=== PATIENT | male | born 1940 | race Caucasian/White ===

== ENCOUNTER 2019-04-10 13:23 | Inpatient (IN) | payer MEDICARE, MEDICAID, OTHER ==
[2019-04-10] VITALS (18 sets, daily range): BP systolic 59–107; BP diastolic 25–68
[~2019-04-10] VITALS: Ht 162.6 cm; Wt 102.3 kg
[2019-04-10] MEDS ORDERED: SODIUM CHLORIDE 0.9% 1,000 ML IV ONE ×2 (13:47→14:45)
[2019-04-10] MEDS ORDERED: VANCOMYCIN 1 G PREMIX 200 ML IV SCH (14:45)
[2019-04-10] MEDS ORDERED: NOREPINEPHRINE 4MG/250ML PMX 250 ML IV ONE (14:45)
[2019-04-10] MEDS ORDERED: PIPERACILLIN/TAZ 3.375G PREMIX 50 ML IV ONE (14:45)
[2019-04-10 14:58] LABS: CHLORIDE 105 mEq/L (98-107)
[2019-04-10 14:59] LABS: BASOPHILS % 0.6 % (0.0-2.0); HEMATOCRIT. 22.9 % (42.0-52.0); HEMOGLOBIN. 7.1 g/dL (14.0-18.0); LYMPHOCYTES % 18.3 % (20.0-50.0); MEAN CORPUSCULAR HEMOGLOBIN 21.4 pg (28.0-32.0); MEAN CORPUSCULAR VOLUME 69.2 fL (80.0-94.0); MEAN PLATELET VOLUME 9.2 fl (7.4-10.4); MONOCYTES % 5.8 % (2.0-8.0); NEUTROPHILS % 74.3 % (40.0-76.0); PLATELET 292 x1000/uL (130-400); RED CELL DISTRIBUTION WIDTH 18.9 % (11.6-14.6)
[2019-04-10 15:27] LABS: INR 1.5; PROTHROMBIN TIME 14.9 sec (9.6-11.0)
[2019-04-10 15:33] LABS: PLATELET ESTIMATE NORMAL
[2019-04-10] MEDS ORDERED: IOHEXOL-300 100 ML BOTTLE ONE (16:36)
[2019-04-10] MEDS ORDERED: DEXT 5%/LACTATED RINGERS 1,000 ML IV SCH (17:05)
[2019-04-10] MEDS ORDERED: ONDANSETRON HCL 4MG/2ML INJ IV PRN (17:15)
[2019-04-10] MEDS ORDERED: NOREPINEPHRINE 4 MG in DEXT 5% WATER 246 ML IV ONE (17:15)
[2019-04-10] MEDS ORDERED: DOCUSATE SODIUM 100MG CAPSULE PO PRN (17:15)
[2019-04-10] MEDS ORDERED: NITROGLYCERIN 0.4MG TABLET SL SL PRN (17:15)
[2019-04-10] MEDS ORDERED: MAGNESIUM/ALUMINUM HYDROXIDE/SIMETHICONE 30ML UDC PO PRN (17:15)
[2019-04-10] MEDS ORDERED: GUAIFENESIN 200MG/10ML SUGAR FREE UDC PO PRN (17:15)
[2019-04-10] MEDS ORDERED: ACETAMINOPHEN 325MG TABLET PO PRN (17:15)
[2019-04-10] MEDS ORDERED: IPRATROPIUM/ALBUTEROL 0.5-3(2.5)MG/3ML NEB INH PRN (17:15)
[2019-04-10] MEDS ORDERED: CLONIDINE 0.1MG TABLET PO PRN (17:15)
[2019-04-10 18:00] LABS: FOLIC ACID (FOLATE) SERUM 9.7 ng/mL (>5.38)
[2019-04-10] MEDS ORDERED: TRAMADOL 50MG TABLET PO PRN (18:38)
[2019-04-10] MEDS ORDERED: MORPHINE SULFATE 4 MG/ML CPJ (NOT FOR IM USE) IV PRN (18:39)
[2019-04-10] MEDS ORDERED: NOREPINEPHRINE 4 MG in DEXTROSE 5% WATER 250 ML IV PRN (18:45)
[2019-04-10] MEDS ORDERED: PHYTONADIONE 10MG/ML AMP SUBCUT NR (19:07)
[2019-04-10] MEDS ORDERED: DOPAMINE 400MG/250ML PREMIX 250 ML IV PRN (19:15)
[2019-04-10] MEDS ORDERED: VASOPRESSIN 10 UNIT in SODIUM CHLORIDE 0.9% 99.5 ML IV PRN (19:15)
[2019-04-10] MEDS ORDERED: DEXTROSE 50% WATER 50ML SYRINGE IV PRN (19:15)
[2019-04-10] MEDS ORDERED: PHENYLEPHRINE 40 MG in DEXT 5% WATER 246 ML IV PRN (19:15)
[2019-04-10] MEDS ORDERED: NOREPINEPHRINE 32 MG in DEXT 5% WATER 468 ML IV PRN ×2 (19:55→20:15)
[2019-04-10] MEDS ORDERED: CEFTRIAXONE 1 G PREMIX 50 ML IV SCH (20:00)
[2019-04-10] MEDS ORDERED: INSULIN LISPRO 100 UNITS/ML SUBCUT SCH (21:00)
[2019-04-10] MEDS ORDERED: LEVOFLOXACIN 500MG PREMIX 100 ML IV NR (21:00)
[2019-04-10] MEDS ORDERED: ZOLPIDEM TARTRATE 5MG TABLET PO PRN (21:00)
[2019-04-10] MEDS ORDERED: FAMOTIDINE 20MG TABLET PO SCH (21:00)
[2019-04-10] MEDS ORDERED: EPINEPHRINE 0.1MG/ML (1:10,000) 10ML SYR ONE (21:40)
[2019-04-10] MEDS ORDERED: CALCIUM CHLORIDE 1GM/10ML SYR IV ONE (21:40)
[2019-04-10] MEDS ORDERED: AMIODARONE HCL 50MG/ML 3ML VIAL IV ONE (21:40)
[2019-04-10] MEDS ORDERED: SODIUM BICARBONATE 8.4% MEQ/ML 50ML VIAL IV ONE (21:40)
[2019-04-10 21:54] LABS: HEMOGLOBIN. 8.7 g/dL (14.0-18.0); MEAN CORPUSCULAR HEMOGLOBIN 25.3 pg (28.0-32.0); MEAN CORPUSCULAR VOLUME 78.4 fL (80.0-94.0); MEAN PLATELET VOLUME 9.3 fl (7.4-10.4); PLATELET 217 x1000/uL (130-400); RED BLOOD CELL COUNT 3.44 mill/uL (4.7-6.1); RED CELL DISTRIBUTION WIDTH 19.4 % (11.6-14.6)
[2019-04-10] MEDS ORDERED: ALBUMIN HUMAN 25GM/100ML (25%) IV SCH (22:00)
[2019-04-10 23:01] LABS: CLARITY URINE CLOUDY (CLEAR); COLOR URINE YELLOW (YELLOW); KETONES URINE NEGATIVE (NEGATIVE); LEUKOCYTE ESTERASE URINE NEGATIVE (NEGATIVE); NITRITE URINE NEGATIVE (NEGATIVE); OCCULT BLOOD URINE 2+ (NEGATIVE); PROTEIN URINE 3+ (NEGATIVE); SPECIFIC GRAVITY URINE 1.038 (1.005-1.030); UROBILINOGEN URINE 0.2 E.U./dL (0.2-1.0)
[2019-04-10] MEDS ORDERED: LOVA20TA2 PO (23:22)
[2019-04-10] MEDS ORDERED: METO200T48 PO (23:22)
[2019-04-10] MEDS ORDERED: DILT300T10 PO (23:22)
[2019-04-10] MEDS ORDERED: ENAL20TA MT (23:22)
[2019-04-10] MEDS ORDERED: DUTA0.5C15 PO (23:22)
[2019-04-10] MEDS ORDERED: GABA-531 PO (23:22)
[2019-04-10] MEDS ORDERED: TAMS0.4C31 PO (23:22)
[2019-04-10] MEDS ORDERED: HYDR100T26 PO (23:22)
[2019-04-10] MEDS ORDERED: FURO-152 PO (23:22)
[2019-04-10] MEDS ORDERED: INSU100I28 SQ (23:22)
[2019-04-10] MEDS ORDERED: RIVA20TA PO (23:22)
[2019-04-10] MEDS ORDERED: TRAM50TA3 PO (23:22)
[2019-04-10] MEDS ORDERED: DIGO125T82 PO (23:22)
[2019-04-10] MEDS ORDERED: OMEP20TA2 PO (23:22)
[2019-04-10] MEDS ORDERED: METF-416 PO (23:22)
[2019-04-11] MEDS ORDERED: BLOOD SUGAR DIAGNOSTIC STRIP TEST SCH
[2019-04-11] MEDS ORDERED: INSULIN LISPRO 100 UNITS/ML SUBCUT SCH
[2019-04-11 01:57] LABS: PLATELET ESTIMATE NORMAL
[2019-04-11] MEDS ORDERED: CEFTRIAXONE 1 G PREMIX 50 ML IV SCH (09:00)
[2019-04-11] MEDS ORDERED: SODIUM BICARBONATE 8.4% MEQ/ML 50ML VIAL IV ONE (15:43)
[2019-04-11] MEDS ORDERED: EPINEPHRINE 0.1MG/ML (1:10,000) 10ML SYR ONE (15:43)
[2019-04-11] MEDS ORDERED: LEVOFLOXACIN 250MG PREMIX 50 ML IV SCH (21:00)
== END 2019-04-10 22:19 | disposition expired | DRG 393 ==
LOC: ER 13:23 → EDBEDREQ 13:50 → EDBEDREQSVC 14:44 → MICUSO 14:58 → EDBEDREQ 15:49 → ENRESERV 16:23
PROVIDERS: ADMIT Internal Medicine; ATTEND Internal Medicine
PROC: 5A12012 Performance of Cardiac Output, Single, Manual (ICD-10-PCS; principal; 2019-04-10)
PROC: 30233K1 Transfusion of Nonautologous Frozen Plasma into Peripheral Vein, Percutaneous Approach (ICD-10-PCS; 2019-04-10)
PROC: 30233N1 Transfusion of Nonautologous Red Blood Cells into Peripheral Vein, Percutaneous Approach (ICD-10-PCS; 2019-04-10)
DX: K66.1 Hemoperitoneum (principal); N17.0 Acute kidney failure with tubular necrosis; D62 Acute posthemorrhagic anemia; E44.0 Moderate protein-calorie malnutrition; E87.2 Acidosis; R57.8 Other shock; I49.01 Ventricular fibrillation; E11.65 Type 2 diabetes mellitus with hyperglycemia; I10 Essential (primary) hypertension; Z95.0 Presence of cardiac pacemaker; I46.9 Cardiac arrest, cause unspecified; Z79.84 Long term (current) use of oral hypoglycemic drugs; Z68.38 Body mass index [BMI] 38.0-38.9, adult
CPT/HCPCS: 36415; 74177; 80061; 82607; 82746; 82962; 83036; 83540; 83550; 83605; 84484; 86850; 86900; 86920; 86927; 92950; 93005; 96365; 96367; 96375; 99291; J0282; J0696; J1265; J1956; J2405; J2543; J3370; J3430; J3490; J7030; J7040; J7050; J7060; P9016; P9017; P9021; Q9967; A4315